=== PATIENT | female | born 1990 | race Caucasian/White ===

== ENCOUNTER 2017-07-31 22:22 | Emergency (ER) | payer OTHER ==
[2017-07-31 22:26] VITALS: BP 122/74; PULSE 118; TEMP 99.6; BMI 32.1
[2017-07-31 23:09] LABS: HCG,QUALITATIVE URINE POSITIVE
[2017-07-31 23:11] LABS: URINE APPEARANCE SLCLOUDY; URINE BILIRUBIN NEGATIVE (<2.0 mg/dL); URINE COLOR YELLOW; URINE GLUCOSE (UA) NEGATIVE (NEGATIVE); URINE KETONE NEGATIVE (NEGATIVE); URINE LEUK ESTERASE TRACE (NEGATIVE); URINE NITRITE NEGATIVE (NEGATIVE); URINE PROTEIN NEGATIVE (NEGATIVE); URINE UROBILINOGEN NEGATIVE mg/dL (0.2-1.0)
[2017-07-31 23:20] LABS: EPI CELLS FEW /HPF (FEW); URINE MUCUS RARE
--- NOTE | 2017-07-31 23:24 | PDOC ---
History of Present Illness - General History Source: Patient Exam Limitations: No Limitations - History of Present Illness Initial Comments: 08/01/17 00:07 The patient is a 27 year old female, G1 7wks with no past medical history presents to the emergency department complaining of vaginal discharge. The patient reports she was using the bathroom earlier today when she noticed a red/brown discharge when she wiped. The patient presents today to make sure that everything is ok with her . The patient reports she takes vitamin and denies the use of any other medication. Denies heavy cramping. Denies dysuria, hematuria, frequency or urgency to urinate. Denies diarrhea or constipation, nausea, or vomiting Family history: Diabetes. Surgical history: None reported. Allergies: NKDA LMP: June 12, 2017 <Nati Orellana - Last Filed: 08/01/17 01:45> <Elva Lemos - Last Filed: 08/01/17 01:51> - General Chief Complaint: Vaginal Bleeding Stated Complaint: VAGINAL BLEEDING Time Seen by Provider: 07/31/17 22:47 Past History <Nati Orellana - Last Filed: 08/01/17 01:45> - Past Medical History COPD: No - Suicide/Smoking/Psychosocial Hx Smoking History: Never smoked <Elva Lemos - Last Filed: 08/01/17 01:51> - Past Medical History Allergies/Adverse Reactions: Allergies Allergy/AdvReac Type Severity Reaction Status Date / Time amoxicillin Allergy Verified 07/31/17 22:24 Penicillins Allergy Verified 07/31/17 22:24 Review of Systems - Review of Systems Able to Perform ROS?: Yes Comments:: 08/01/17 00:07 CONSTITUTIONAL: Absent: fever, no chills, no fatigue EYES: Absent: visual changes ENT: Absent: ear pain, no sore throat CARDIOVASCULAR: Absent: chest pain, no palpitations RESPIRATORY: Absent: cough, no SOB GI: Absent: abdominal pain, no nausea, no vomiting, no constipation, no diarrhea GENITOURINARY: (+) red/brown discharge Absent: dysuria, no frequency, no hematuria MUSKULOSKELETAL: Absent: back pain, no arthralgia, no myalgia SKIN: Absent: rash <Nati Orellana - Last Filed: 08/01/17 01:45> *Physical Exam - Vital Signs Last Vital Signs Temp Pulse Resp BP Pulse Ox 99.6 F 118 H 18 122/74 98 07/31/17 22:24 07/31/17 22:24 07/31/17 22:24 07/31/17 22:24 07/31/17 22:24 - Physical Exam Comments: 08/01/17 00:34 GENERAL: Well-appearing, well-nourished. No apparent distress. HEENT: Normocephalic, atraumatic. PERRL, EOM intact. CARDIOVASCULAR: Normal S1, S2. Regular rate and rhythm. PULMONARY: Clear to auscultation bilaterally. ABDOMEN: Soft, non-distended, non-tender. EXTREMITIES: Normal ROM in all four extremities. No gross deformities. SKIN: Warm, dry. No rash NEUROLOGICAL: No focal neurological deficits. <Nati Orellana - Last Filed: 08/01/17 01:45> - Vital Signs Last Vital Signs Temp Pulse Resp BP Pulse Ox 99.6 F 118 H 18 122/74 98 07/31/17 22:24 07/31/17 22:24 07/31/17 22:24 07/31/17 22:24 07/31/17 22:24 <Elva Lemos - Last Filed: 08/01/17 01:51> ED Treatment Course - ADDITIONAL ORDERS Additional order review: Laboratory Results 07/31/17 22:27 Urine Color Yellow Urine Appearance Slcloudy Urine pH 6.0 Ur Specific [employer] 1.018 Urine Protein Negative Urine Glucose (UA) Negative Urine Ketones Negative Urine Blood Negative Urine Nitrite Negative Urine Bilirubin Negative Urine Urobilinogen Negative Ur Leukocyte Esterase Trace Urine WBC (Auto) 4 Urine RBC (Auto) 2 Ur Epithelial Cells Few Urine Mucus Rare Urine HCG, Qual Positive <Nati Orellana - Last Filed: 08/01/17 01:45> - ADDITIONAL ORDERS Additional order review: Laboratory Results 07/31/17 22:27 Urine Color Yellow Urine Appearance Slcloudy Urine pH 6.0 Ur Specific [employer] 1.018 Urine Protein Negative Urine Glucose (UA) Negative Urine Ketones Negative Urine Blood Negative Urine Nitrite Negative Urine Bilirubin Negative Urine Urobilinogen Negative Ur Leukocyte Esterase Trace Urine WBC (Auto) 4 Urine RBC (Auto) 2 Ur Epithelial Cells Few Urine Mucus Rare Urine HCG, Qual Positive <Elva Lemos - Last Filed: 08/01/17 01:51> Medical Decision Making - Medical Decision Making 08/01/17 01:45 Ultrasound read by: Angelito Carvalho MD at 08/01/2017 01:39 EST There is a single live intrauterine gestation with measurements corresponding to 7 weeks. A yolk sac is noted. heart rate is 154 beats per minute. No acute or sac abnormalities. Normal right ovary. Left ovary could not be visualized due to bowel gas <Nati Orellana - Last Filed: 08/01/17 01:45> *DC/Admit/Observation/Transfer <Nati Orellana - Last Filed: 08/01/17 01:45> <Elva Lemos - Last Filed: 08/01/17 01:51> Diagnosis at time of Disposition: Threatened - Discharge Dispostion Disposition: HOME Condition at time of disposition: Stable - Referrals Referrals: Cassandra Guzman [Primary Care Provider] - - Patient Instructions Printed Discharge Instructions: DI for Threatened Additional Instructions: please continue your care with your manager social - Post Discharge Activity
== END 2017-08-01 02:03 | disposition home or self-care (01) ==
LOC: JER 22:22
DX: Z3A.01 Less than 8 weeks gestation of pregnancy (principal)
CPT/HCPCS: 36415; 76817-TC; 81003; 81015; 84702; 84703; 86850; 86900; 86901; 99283-25

== ENCOUNTER 2018-02-14 16:23 | Inpatient (IN) | payer OTHER ==
[2018-02-14] MEDS ORDERED: BETAMET ACET/BETAMET NA PH 30 MG/5 ML VIAL ONE (17:44)
[2018-02-14] MEDS ORDERED: AMPICILLIN SODIUM 2 GM VIAL ONE (17:45)
[2018-02-14] MEDS: DEXTROSE 5%-LACTATED RINGERS 1,000 ML IV SCH (18:00)
[2018-02-14] MEDS ORDERED: AMPICILLIN - 2 GM in SODIUM CHLORIDE 100 ML IVPB ONE (18:21)
[2018-02-14] MEDS ORDERED: BETAMET ACET/BETAMET NA PH 30 MG/5 ML VIAL IM ONE (18:22)
--- NOTE | 2018-02-14 18:26 | HP ---
Past Medical History - Admission History of Present Illness: 28 yo @ 35 2/7 wks, EDC 03/19/2018 complicated by: 1. status No GBS yet 2. Obesity - Starting BMI 32 9 lb total weight gain per patient 3. Elevated 1 H GCT, normal 3 H GTT 4. Transfer of care to our practice at 22 wks 5. 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 Breech presentation on last ultrasound Patient presents with chief complaint of contractions which began at 1000. She denies leakage of fluid or vaginal bleeding, she reports movement. History Source: Patient Limitations to Obtaining History: No Limitations - Past Medical History Cardiovascular: No: HTN Pulmonary: No: Asthma Gastrointestinal: No: GERD ...: 1 ...Para: 0 ... Weeks Gestation by Dates: 35.2 ...EDC by Dates: 03/19/18 Heme/Onc: No: Anemia - Past Surgical History Past Surgical History: Yes: None Hx Myomectomy: No Hx Transabdominal Cerclage: No - Smoking History Smoking history: Never smoked - Alcohol/Substance Use Hx Alcohol Use: No History of Substance Use: reports: None - Social History History of Recent Travel: No Home Medications - Allergies Allergies/Adverse Reactions: Allergies Allergy/AdvReac Type Severity Reaction Status Date / Time amoxicillin Allergy Verified 07/31/17 22:24 Penicillins Allergy Verified 07/31/17 22:24 Family Disease History - Family Disease History Family History: Denies Review of Systems - Review of Systems Constitutional: reports: No Symptoms Cardiovascular: reports: No Symptoms Respiratory: reports: No Symptoms Gastrointestinal: reports: No Symptoms Musculoskeletal: reports: No Symptoms Neurological: reports: No Symptoms Psychiatric: reports: No Symptoms Physical Exam - Maternity Constitutional: Yes: Well Nourished, No Distress, Calm Lungs: Clear to auscultation - Abdominal Exam/OB Number of Fetuses: Single Contractions: No Intensity: Mild Monitor Mode: External Heart Rate (range): 155 Category: I Accelerations: Non-Uniform Decelerations: None - Vaginal Exam/OB Vaginal Bleediing: No Dilatation (cm): 3 Effacement (%): 50 Amniotic Membrane Status: Intact Presentation: Transverse/Shoulder Station: -3 - Physical Exam Edema: No Psychiatric: Yes: Alert, Oriented - Labs Lab Results: PNL - A positive, antibody negative Hg yadi AA; Lead < 1; HBs Ag neg; Rubella Low positive; HIV neg; Sequential WNL; Carrier screen WNL; HCV neg Hemorrhage Risk Assessment - Risk Factors Medium Risk Factors: Yes: None High Risk Factors: Yes: None Risk Score: 1 Risk Level: Medium Risk Assessment/Plan 28 yo @ 35 2/7 wks, labor 1. Admit to L&D 2. Routine labs collected and sent 3. Reviewed prematurity with patient. Discussed at this point in time we will not augment labor. Reviewed risk of including temperature regulation, respiratory distress, need for prolonged hospitalization. NICU notified of patient's status 4. Bedside ultrasound ordered 5. GBS unknown - Patient denies penicillin / ampicillin allergy Plan for ampicillin 6. Will start betamethasone course 7. Will offer pain medication upon request 8. Will proceed with expectant management
[2018-02-14] MEDS ORDERED: TUBERCULIN PPD 5 TU/0.1ML SYRINGE (IN PATIENT USE ONLY) ID ONE (18:27)
[2018-02-14 18:34] VITALS: BMI 34.5
[2018-02-14 19:40] LABS: BASO % 0.4 % (0-2.0); EOS % 0.3 % (0-4.5); HEMATOCRIT 34.2 % (32.4-45.2); HEMOGLOBIN 12.2 GM/dL (10.7-15.3); LYMPH % 21.6 % (8-40); MCH 31.4 pg (25.7-33.7); MCHC 35.7 g/dl (32.0-36.0); MEAN CELL VOLUME 87.9 fl (80-96); MONO % 5.5 % (3.8-10.2); NEUT % 72.2 % (42.8-82.8); PLATELET COUNT 194 K/MM3 (134-434); RBC 3.89 M/mm3 (3.60-5.2); RDW 12.7 % (11.6-15.6); WHITE BLOOD COUNT 9.1 K/mm3 (4.0-10.0)
[2018-02-14 19:55] LABS: INR 0.92 (0.83-1.09); PROTHROMBIN TIME (PATIENT) 10.9 SEC (9.7-13.0)
[2018-02-14 19:57] LABS: ACTIVATED PTT 27.8 SECONDS (25.2-36.5)
[2018-02-14 20:04] LABS: ANION GAP 11 MMOL/L (8-16); BLOOD UREA NITROGEN 6 mg/dL (7-18); CALCIUM 8.6 mg/dL (8.5-10.1); CHLORIDE 107 mmol/L (98-107); CO2 21 mmol/L (21-32); CREATININE 0.6 mg/dL (0.55-1.3); GLUCOSE,RANDOM 114 mg/dL (74-106); POTASSIUM 3.7 mmol/L (3.5-5.1); SODIUM 139 mmol/L (136-145)
--- NOTE | 2018-02-14 21:01 | PN ---
Ante-Partal Exam - Subjective Subjective: Patient reports leakage of clear fluids Increased pain with contractions Vital Signs: Vital Signs Temperature 98.7 F 02/14/18 20:00 Pulse Rate 104 H 02/14/18 20:00 Respiratory Rate 20 02/14/18 20:00 Blood Pressure 120/70 02/14/18 20:00 O2 Sat by Pulse Oximetry (%) Bleeding: No Headache: No Visual changes: No Right upper quadrant pain: No - Contractions Contractions: Yes Regularity: Irregular Intensity: Moderate Monitor Mode: External - Exam during Labor Heart Rate: 155 Variability: Moderate Category: I Monitor Accelerations: Present Monitor Decelerations: None Exam: Vaginal Dilatation (cm): 4 Effacement (%): 100 Amniotic Membrane Status: Ruptured Presentation: Transverse/Shoulder Station: -2 - Intrapartum Hemorrhage Risk Medium Risk Factors: None High Risk Factors: None Risk Score: 0 Risk Level: Low Risk - Assessment/Plan Assessment/Plan: 28 yo @ 35 + wks, SROM, labor 1. Patient with transverse lie reviewed given position, will need delivery Reviewed risks including but not limited to infection, bleeding, damage to surrounding organs such as bowel, bladder; risk of injury to infant 2. Category I FHT 4. Neonatology notified, Dr. Leon at bedside 5. Will notify OR and anesthesia
[2018-02-14] MEDS ORDERED: morphine SULFATE/Preservative Free 0.5 MG/ML (1cc Syringe) ONE (21:14)
[2018-02-14] MEDS ORDERED: ceFAZolin SODIUM 1 GM VIAL ONE (21:30)
[2018-02-14] MEDS ORDERED: OXYTOCIN 10 UNITS/ML VIAL ONE (21:41)
[2018-02-14] MEDS ORDERED: ONDANSETRON 4 MG/2 ML VIAL IVPUSH PRN (21:58)
[2018-02-14 22:15] LABS: ARTERIAL BLOOD GAS BASE EXCESS -1.6 meq/l (-2-2); ARTERIAL BLOOD GAS pH 7.26 (7.35-7.45)
[2018-02-14] MEDS ORDERED: AMPICILLIN - 1 GM in SODIUM CHLORIDE 100 ML IVPB SCH (22:22)
[2018-02-14 22:28] LABS: ARTERIAL BLD GAS O2 SATURATION 10.6 % (90-98.9); ARTERIAL BLOOD GAS PCO2 60.4 mmHg (35-45); ARTERIAL BLOOD GAS PO2 10.8 mmHg (80-100)
[2018-02-14 22:30] LABS: VENOUS PH 7.32 (7.32-7.42); VENOUS PO2 19.8 mmHg (28-48)
--- NOTE | 2018-02-14 22:59 | PN ---
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
[2018-02-14] MEDS ORDERED: BENZOCAINE 28 GM HEMORRHOIDAL OINTMENT TP PRN (23:02)
[2018-02-14] MEDS ORDERED: oxyCODONE HCL 5 MG TABLET PO PRN ×2 (23:02)
[2018-02-14] MEDS ORDERED: IBUPROFEN 800 MG/8 ML IJ IVPB PRN (23:02)
[2018-02-14] MEDS ORDERED: SENNOSIDES/DOCUSATE COMBO (SENNA PLUS) TABLET (UD) PO PRN (23:02)
[2018-02-14] MEDS ORDERED: BENZOCAINE 20% 57 GM BOTTLE TP PRN (23:02)
[2018-02-14] MEDS ORDERED: METHYLERGONOVINE MALEATE 0.2 MG/1 ML AMP IM PRN (23:02)
[2018-02-15] MEDS ORDERED: OXYTOCIN 20 UNITS in 0.9% NS 20 UNIT/1,000 ML INFUS.BAG IV ONE (00:27)
--- NOTE | 2018-02-15 06:25 | PN ---
Post Progress Note - Subjective Subjective: Patient without acute complaints. Tolerating clears, without nausea or vomiting No voiding, bocanegra in place draining clear fluid No ambulation or flatus yet. Denies fevers or chills. Pain well controlled. Post Day: 1 Type of Delivery: Primary C/S Vital Signs: Vital Signs Temperature 99.4 F 02/15/18 02:00 Pulse Rate 98 H 02/15/18 02:00 Respiratory Rate 18 02/15/18 04:00 Blood Pressure 113/64 02/15/18 02:00 O2 Sat by Pulse Oximetry (%) Breast Exam: Yes: Soft Uterus: Yes: Fundus Firm, Fundus below umbilicus Incision: Yes: Dressing dry and intact Abdomen/GI: Yes: Abdomen soft, Abdominal Distention (mild ), Tender (mild incisional), Passing flatus Extremities: Yes: Calves non-tender, Edema (trace) Activity: Ambulating - Labs Labs: CBC WBC 9.1 K/mm3 (4.0-10.0) 02/14/18 18:40 RBC 3.89 M/mm3 (3.60-5.2) 02/14/18 18:40 Hgb 12.2 GM/dL (10.7-15.3) 02/14/18 18:40 Hct 34.2 % (32.4-45.2) 02/14/18 18:40 MCV 87.9 fl (80-96) 02/14/18 18:40 MCH 31.4 pg (25.7-33.7) 02/14/18 18:40 MCHC 35.7 g/dl (32.0-36.0) 02/14/18 18:40 RDW 12.7 % (11.6-15.6) 02/14/18 18:40 Plt Count 194 K/MM3 (134-434) 02/14/18 18:40 MPV 10.0 fl (7.5-11.1) 02/14/18 18:40 Absolute Neuts (auto) 6.5 K/mm3 (1.5-8.0) 02/14/18 18:40 Neutrophils % 72.2 % (42.8-82.8) 02/14/18 18:40 Lymphocytes % 21.6 % (8-40) 02/14/18 18:40 Monocytes % 5.5 % (3.8-10.2) 02/14/18 18:40 Eosinophils % 0.3 % (0-4.5) 02/14/18 18:40 Basophils % 0.4 % (0-2.0) 02/14/18 18:40 Nucleated RBC % 0 % (0-0) 02/14/18 18:40 Assessment/Plan 28 yo POD # 1 s/p primary CD, afebrile, vital signs stable, doing well 1. Continue routine postoperative care. 2. Follow up AM CBC 3. Rh positive status, no rhogam indicated. 4. Encourage ambulation and incentive spirometer use 5. Continue oral pain medication 6. Anticipate discharge home postoperative day #3 or #4
[2018-02-15 08:15] LABS: BASO % 0.3 % (0-2.0); HEMATOCRIT 33.1 % (32.4-45.2); HEMOGLOBIN 10.9 GM/dL (10.7-15.3); LYMPH % 9.8 % (8-40); MCH 29.2 pg (25.7-33.7); MEAN CELL VOLUME 88.6 fl (80-96); MEAN PLT VOLUME 9.6 fl (7.5-11.1); MONO % 4.4 % (3.8-10.2); NEUT % 85.5 % (42.8-82.8); PLATELET COUNT 196 K/MM3 (134-434); RBC 3.74 M/mm3 (3.60-5.2); RDW 12.7 % (11.6-15.6); WHITE BLOOD COUNT 16.4 K/mm3 (4.0-10.0)
[2018-02-15] MEDS: OXYTOCIN 20 UNITS in 0.9% NS 20 UNIT/1,000 ML INFUS.BAG IV SCH (08:36)
[2018-02-15] MEDS: FERROUS SO4 325 MG TABLET (FP) PO SCH ×2 (08:37→18:20)
[2018-02-15] MEDS: PRENATAL VITAMINS W/ FOLIC ACID TABLET (FP) PO SCH (09:14)
--- NOTE | 2018-02-15 09:16 | OP ---
DATE OF OPERATION: 02/14/2018 SURGEON: Senait Carpenter MD TRANSPORTATION ASSOCIATE: LADY Bah ANESTHESIA: Matt Gaitan MD, with spinal anesthesia. FINDINGS: Female infant, transverse lie, back up, Apgars 6 and 9, weight 5 pounds 7 ounces, length 16.5 inches. Normal fallopian tubes and ovaries noted. 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 FLUIDS GIVEN: 1100. URINE OUTPUT: 400. ESTIMATED BLOOD LOSS: 700. INDICATION: Patient is a 28-year-old, 1, para 0, at 35 and 2 weeks, who presented with chief complaint of contractions and cervical change. She had grossly ruptured and was found to be transverse lie. She was counseled regarding delivery. Risks, benefits, alternatives, and complications were discussed, including infection, bleeding, damage to surrounding organs such as bowel, bladder, injury to , need for future child-bearing planning. She expressed understanding. DESCRIPTION OF PROCEDURE: Was brought to the operating room. When anesthesia was found to be adequate, patient was prepped and draped in normal sterile fashion in dorsal supine position with a leftward tilt. An approximately 11-cm skin incision was made with a knife and carried down to the underlying rectus fascia using the Bovie electrocautery. The fascia was nicked in midline, extended laterally using the Morse scissors. Inferior portion of the fascial incision was tented up using Gabino clamps. Dissected underlying rectus muscles using Morse scissors. Attention was brought to the superior portion where in similar fashion it was tented up using Gabino clamps. Dissected underlying rectus muscles using Morse scissors. The rectus muscles were in the midline bluntly and the peritoneum was entered sharply and this incision was extended superiorly and inferiorly using Metzenbaum scissors. The vesicouterine peritoneum was identified, entered sharply, and extended laterally using Metzenbaum scissors. A bladder flap was created digitally. The hysterotomy was performed and extended laterally using the bandage scissors. The was found to be in transverse position. She was reverted to breech. The breech of the progressed until the level of the scapula where the 's right scapula was rotated anteriorly. The right arm was swept midline and delivered. The infant was then rotated until the left scapula was anterior and the left arm was delivered in a similar fashion. The head was flexed and the head was delivered atraumatically. Cord was clamped and cut. Nose and mouth were bulb suctioned. Cord blood and cord gases were collected and sent and was handed to awaiting NICU staff present for delivery. The placenta was manually extracted. Uterus was cleared of all clot and debris. Uterus closed using 0 Biosyn in a running layer, second layer was an imbricated layer. 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 The vesicouterine peritoneum was reapproximated. The gutters were cleared of all clot and debris. The peritoneum was closed using 2-0 Biosyn in a running fashion. The muscles reapproximated using 0 Vicryl in interrupted fashion. The fascia was closed using 0 Vicryl in a running fashion and the subcutaneous fat was closed using 0 Vicryl in a running fashion. Skin was reapproximated using 3 -0 Vicryl. Patient tolerated procedure well. Estimated blood loss was 700 mL. Patient was brought to recovery room in stable condition. Barbara [id number] MTDD
--- NOTE | 2018-02-15 10:48 | PN ---
Progress Note (short form) - Note Progress Note: Anesthesia postop note 28y/o F s/p spinal anesthesia/duramorph for section POD#1, vss, aaox3, sensory motor intact distally, pain well controllef. No anesthesia complications.
[2018-02-15] MEDS: IBUPROFEN 600 MG TABLET (FP) PO PRN (16:29)
[2018-02-15] MEDS: SIMETHICONE 80 MG TAB.CHEW (FP) PO PRN (16:30)
[2018-02-15] MEDS: ACETAMINOPHEN 325 MG TABLET (FP) PO PRN (16:30)
[2018-02-15] MEDS ORDERED: BISACODYL 10 MG SUPP.RECT RC PRN (23:02)
[2018-02-16] MEDS: SIMETHICONE 80 MG TAB.CHEW (FP) PO PRN ×2 (01:47→19:17)
[2018-02-16] MEDS: ACETAMINOPHEN 325 MG TABLET (FP) PO PRN ×2 (01:47→19:17)
[2018-02-16] MEDS: IBUPROFEN 600 MG TABLET (FP) PO PRN ×2 (01:47→19:16)
--- NOTE | 2018-02-16 08:20 | PN ---
Progress Note (short form) - Note Progress Note: ppd 2 doing well, no c/o, no excess vaginal bleeding CBC, BMP 02/15/18 07:45 02/14/18 18:40 Last Vital Signs Temp Pulse Resp BP Pulse Ox 98.3 F 104 H 20 107/59 L 02/15/18 21:41 02/15/18 21:41 02/16/18 00:00 02/15/18 21:41 abdomen soft, non tender, no cva , incision dry, clean in uterus firm lochia mild no calf tenseness plan ambulate, cbc in am
[2018-02-16] MEDS: FERROUS SO4 325 MG TABLET (FP) PO SCH ×2 (08:27→17:19)
[2018-02-16] MEDS: PRENATAL VITAMINS W/ FOLIC ACID TABLET (FP) PO SCH (11:08)
--- NOTE | 2018-02-17 06:44 | PN ---
Post Progress Note - Subjective Subjective: Patient without acute complaints. Reports tolerating oral intake without nausea or vomiting. Ambulating without dizziness. Denies fevers or chills. Pain well controlled with oral pain medication. Pumping without issue, baby not latching yet. Passing flatus, no BM. Reports feels constipated Post Day: 3 Type of Delivery: Primary C/S Vital Signs: Vital Signs Temperature 98.8 F 02/16/18 20:55 Pulse Rate 117 H 02/16/18 20:55 Respiratory Rate 20 02/16/18 20:55 Blood Pressure 99/61 02/16/18 20:55 O2 Sat by Pulse Oximetry (%) Breast Exam: Yes: Soft Uterus: Yes: Fundus Firm, Fundus below umbilicus Incision: Yes: Sutures intact. No: Redness, Oozing Abdomen/GI: Yes: Abdomen soft, Passing flatus, Tolerating PO. No: Abdominal Distention, Tender Lochia: Yes: Serosa Lochia, amount: Small Extremities: Yes: Calves non-tender, Edema (+1) Activity: Ambulating - Labs Labs: CBC WBC 16.4 K/mm3 (4.0-10.0) H 02/15/18 07:45 RBC 3.74 M/mm3 (3.60-5.2) 02/15/18 07:45 Hgb 10.9 GM/dL (10.7-15.3) 02/15/18 07:45 Hct 33.1 % (32.4-45.2) 02/15/18 07:45 MCV 88.6 fl (80-96) 02/15/18 07:45 MCH 29.2 pg (25.7-33.7) 02/15/18 07:45 MCHC 33.0 g/dl (32.0-36.0) 02/15/18 07:45 RDW 12.7 % (11.6-15.6) 02/15/18 07:45 Plt Count 196 K/MM3 (134-434) 02/15/18 07:45 MPV 9.6 fl (7.5-11.1) 02/15/18 07:45 Absolute Neuts (auto) 14.1 K/mm3 (1.5-8.0) H 02/15/18 07:45 Neutrophils % 85.5 % (42.8-82.8) H 02/15/18 07:45 Lymphocytes % 9.8 % (8-40) D 02/15/18 07:45 Monocytes % 4.4 % (3.8-10.2) 02/15/18 07:45 Eosinophils % 0.0 % (0-4.5) D 02/15/18 07:45 Basophils % 0.3 % (0-2.0) 02/15/18 07:45 Nucleated RBC % 0 % (0-0) 02/15/18 07:45 Assessment/Plan 28 yo POD # 3 s/p primary CD, afebrile, vital signs stable, doing well 1. Continue routine postoperative care. 2. Encourage ambulation and incentive spirometer use 3. Continue oral pain medication 4. Anticipate discharge home postoperative day #4
[2018-02-17] MEDS: ACETAMINOPHEN 325 MG TABLET (FP) PO PRN ×4 (08:01→23:32)
[2018-02-17] MEDS: SIMETHICONE 80 MG TAB.CHEW (FP) PO PRN ×4 (08:01→23:32)
[2018-02-17] MEDS: FERROUS SO4 325 MG TABLET (FP) PO SCH ×2 (08:01→17:33)
[2018-02-17] MEDS: IBUPROFEN 600 MG TABLET (FP) PO PRN ×4 (08:01→23:32)
[2018-02-17 08:24] LABS: BASO % 0.4 % (0-2.0); EOS % 0.7 % (0-4.5); HEMATOCRIT 28.7 % (32.4-45.2); HEMOGLOBIN 9.4 GM/dL (10.7-15.3); LYMPH % 29.3 % (8-40); MCH 29.5 pg (25.7-33.7); MCHC 32.9 g/dl (32.0-36.0); MEAN CELL VOLUME 89.9 fl (80-96); MEAN PLT VOLUME 9.5 fl (7.5-11.1); MONO % 6.5 % (3.8-10.2); NEUT % 63.1 % (42.8-82.8); PLATELET COUNT 166 K/MM3 (134-434); WHITE BLOOD COUNT 9.7 K/mm3 (4.0-10.0)
[2018-02-17] MEDS: PRENATAL VITAMINS W/ FOLIC ACID TABLET (FP) PO SCH (09:28)
[2018-02-18] MEDS: DEXTROSE 5%-LACTATED RINGERS 1,000 ML IV SCH (01:54)
[2018-02-18] MEDS: OXYTOCIN 20 UNITS in 0.9% NS 20 UNIT/1,000 ML INFUS.BAG IV SCH (01:54)
[2018-02-18] MEDS: ACETAMINOPHEN 325 MG TABLET (FP) PO PRN ×2 (06:18→12:07)
[2018-02-18] MEDS: IBUPROFEN 600 MG TABLET (FP) PO PRN ×2 (06:18→12:07)
[2018-02-18] MEDS: SIMETHICONE 80 MG TAB.CHEW (FP) PO PRN ×2 (06:18→12:06)
[2018-02-18] MEDS: FERROUS SO4 325 MG TABLET (FP) PO SCH (08:47)
--- NOTE | 2018-02-18 11:08 | PN ---
Post Progress Note - Subjective Subjective: Patient without complaints, doing well. Reports tolerating oral intake without nausea or vomiting. Ambulating without dizziness. Denies fevers or chills. Pain well controlled with oral pain medication. Breast feeding w/o problems Passing flatus and BM. Post Day: 4 Type of Delivery: Primary C/S Vital Signs: Vital Signs Temperature 98.2 F 02/17/18 22:00 Pulse Rate 90 02/17/18 22:00 Respiratory Rate 18 02/17/18 22:00 Blood Pressure 107/59 L 02/17/18 22:00 O2 Sat by Pulse Oximetry (%) Breast Exam: Yes: Soft Uterus: Yes: Fundus Firm Incision: Yes: Sutures intact Abdomen/GI: Yes: Abdomen soft Lochia: Yes: Rubra Lochia, amount: Small Extremities: Yes: Calves non-tender Perineum: Yes: Intact Activity: Ambulating - Labs Labs: CBC WBC 9.7 K/mm3 (4.0-10.0) 02/17/18 07:15 RBC 3.20 M/mm3 (3.60-5.2) L 02/17/18 07:15 Hgb 9.4 GM/dL (10.7-15.3) L 02/17/18 07:15 Hct 28.7 % (32.4-45.2) L 02/17/18 07:15 MCV 89.9 fl (80-96) 02/17/18 07:15 MCH 29.5 pg (25.7-33.7) 02/17/18 07:15 MCHC 32.9 g/dl (32.0-36.0) 02/17/18 07:15 RDW 13.0 % (11.6-15.6) 02/17/18 07:15 Plt Count 166 K/MM3 (134-434) 02/17/18 07:15 MPV 9.5 fl (7.5-11.1) 02/17/18 07:15 Absolute Neuts (auto) 6.1 K/mm3 (1.5-8.0) 02/17/18 07:15 Neutrophils % 63.1 % (42.8-82.8) D 02/17/18 07:15 Lymphocytes % 29.3 % (8-40) D 02/17/18 07:15 Monocytes % 6.5 % (3.8-10.2) 02/17/18 07:15 Eosinophils % 0.7 % (0-4.5) D 02/17/18 07:15 Basophils % 0.4 % (0-2.0) 02/17/18 07:15 Nucleated RBC % 0 % (0-0) 02/17/18 07:15 Assessment/Plan 28yo P2 s/p primary LT C/S, doing well stable, afebrile. The pt is asymptomatic for s/sxs of anemia. care instructions reviewed. Postop instructions reviewed. Continue routine postop care. Ambulation encouraged. D/c home today
--- NOTE | 2018-02-18 11:31 | DS ---
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 Vital Signs: Vital Signs Temperature 98.2 F 02/17/18 22:00 Pulse Rate 90 02/17/18 22:00 Respiratory Rate 18 02/17/18 22:00 Blood Pressure 107/59 L 02/17/18 22:00 O2 Sat by Pulse Oximetry (%) Constitutional: Yes: Well Nourished, No Distress, Calm Eyes: Yes: WNL, Conjunctiva Clear, EOM Intact HENT: Yes: WNL, Atraumatic, Normocephalic Neck: Yes: WNL, Supple, Trachea Midline Cardiovascular: Yes: WNL, Regular Rate and Rhythm Respiratory: Yes: WNL, Regular, CTA Bilaterally Gastrointestinal: Yes: WNL, Normal Bowel Sounds, Soft ...Rectal Exam: Yes: Deferred Renal/: Yes: WNL ....Post : Yes: Uterus firm, Uterus non-tender, Slight lochia rubra Breast(s): Yes: WNL Musculoskeletal: Yes: WNL Extremities: Yes: WNL Edema: Yes Edema: LLE: Trace, RLE: Trace Integumentary: Yes: WNL Wound/Incision: Yes: Clean/Dry, Well Approximated, Sutures Intact, Open to air Neurological: Yes: WNL, Alert, Oriented ...Motor Strength: WNL Psychiatric: Yes: WNL, Alert, Oriented Labs: CBC, BMP 02/17/18 07:15 02/14/18 18:40 Delivery - Delivery Section: Primary, Low Flap Transverse Type of Anesthesia: Spinal Episiotomy/Laceration: None EBL (cc): 700 Delivery, Single - Stages of Labor Date 1st Stage Initiatied: 02/14/18 Time 1st Stage Initiated: 10:00 Date of Delivery: 02/14/18 Time of Delivery: 21:47 Time Placenta Delivered: 21:48 Placenta: Yes: Expressed - Condition of Auto Parts Manager/Instrument And Control Service Person Present: Yes Name: Aileen Leon Gender: Female Weight: 2.466 kg Total Hours ROM (Hrs/Mins): 1h47m - 1 Minute Total Score: 6 5 Minutes Total Score: 9 - [place] Feeding Plan Initial Plan: Exclusive throughout hospitalization Benefits of Exclusively reinforced: Yes Discharge Summary Reason For Visit: PRIMARY Malpresentation, transverse lie Procedures: Principal: Primary LT C/S Hospital Course: Normal recovery Condition: Good - Instructions Diet, Activity, Other Instructions: Physical activity Resume your normal everyday activity as tolerated no heavy lifting or exercise until seen by your surgeon. You may walk unlimited [place] of and climb stairs. You may resume driving the car when you feel safe and comfortable behind the wheel. No sexual activity as instructed. Wound care If you have a bandage, leave it on, and keep dry for 48-72 hours. After that time discard the outer bandage. If they are tapes on the skin under the out of bandage leave them in place. They will peel off in the next 7 to 10 days. Do Not Peel them off. You may shower the day after surgery. If there are tapes present on the skin, you may shower over them. Diet There are no dietary restrictions. Eat healthy, high-fiber foods. Drink 6 to 8 glasses of liquid each day. This will assist in keeping your bowels are regular. Pain management You may take Tylenol or acetaminophen or Ibuprofen (for example, Motrin, Advil etc.) from my pain prescription medication is ordered should be taken as prescribed for moderate to severe pain. Call MD for any of the following: Severe pain not relieved by medication Fever of 101 or higher Excessive bleeding or drainage on dressing Inability to urinate Referrals: Senait Carpenter MD [Staff Physician] - Disposition: HOME - Home Medications Comprehensive Discharge Medication List: Ambulatory Orders Prenat 115/Iron Fum/Folic/Dss [ 19 Tablet] 1 each PO DAILY 02/14/18
[2018-02-18] MEDS: PRENATAL VITAMINS W/ FOLIC ACID TABLET (FP) PO SCH (12:06)
[2018-02-18 12:13] VITALS: BP 100/46; PULSE 96; TEMP 98.9
--- NOTE | 2018-02-20 16:05 | PATH ---
Surgical Pathology Report Patient Name: ARLENE WHITE I. Med. Rec. 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 Electronically Signed Redd Albrecht M.D. Gross Description The specimen is received fresh labeled placenta and is a 369 gram, 14.0 x 13.5 x 3.0 cm. placenta with attached membranes and umbilical cord. The attached membranes are covington, translucent with focal opacities and insert marginally. The umbilical cord measures 8.5 cm. in length and averages 1.2 cm. in diameter. The cord inserts eccentrically, 2.5 cm. to the nearest margin. No true knots or strictures are identified. Cut surface of the umbilical cord reveals 3 vessels. The surface is paez-blue with minimal fibrin deposition and appropriate caliber vessels. The maternal surface is red-brown with focal defects. Sectioning reveals red-brown, spongy parenchyma. No lesions are identified. Billing Supervisor sections are submitted in three cassettes as follows: 1- membrane rolls and umbilical cord; 2-3- full thickness sections of placenta. 02/19/201802/19/2018
== END 2018-02-18 14:50 | disposition home or self-care (01) | DRG 786 ==
LOC: JDEL 16:23 → JLDR 17:30 → J3W 02-15 00:55
PROVIDERS: ADMIT Obstetrics & Gynecology; ATTEND Obstetrics & Gynecology
PROC: 10D00Z1 Extraction of Products of Conception, Low, Open Approach (ICD-10-PCS; principal; 2018-02-14)
DX: O32.2XX0 Maternal care for transverse and oblique lie, not applicable or unspecified (principal); O60.14X0 Preterm labor third trimester with preterm delivery third trimester, not applicable or unspecified; O99.213 Obesity complicating pregnancy, third trimester; E66.9 Obesity, unspecified; Z3A.35 35 weeks gestation of pregnancy; Z68.34 Body mass index [BMI] 34.0-34.9, adult; Z37.0 Single live birth
CPT/HCPCS: 36415; 36600; 76801-TC; 80048; 82803; 85025; 85610; 85730; 86593; 86850; 86900; 86901; 88307-TC; 94010; 96372

== ENCOUNTER 2018-11-07 20:24 | Emergency (ER) | payer OTHER ==
[2018-11-07 20:36] VITALS: TEMP 99.2; BMI 33.9
--- NOTE | 2018-11-07 20:37 | PDOC ---
Rapid Medical Evaluation Chief Complaint: Chest Pain Time Seen by Provider: 11/07/18 20:34 Medical Evaluation: Allergies Allergy/AdvReac Type Severity Reaction Status Date / Time No Known Allergies Allergy Verified 02/14/18 18:35 11/07/18 20:35 I have performed a brief in-person evaluation of this patient. The patient presents with a chief complaint of: intermittent CP and palpitations for 3 days. Denies SOB, dizziness, numbness or tingling sensation. pt went to urgent care today and was found to have A-flutter Pertinent physical exam findings: A&O x 3 in NAD I have ordered the following: ekg, cbc, cardiac profile, TSH, free T3 The patient will proceed to the ED for further evaluation. Discharge Disposition - Diagnosis Palpitations - Discharge Dispostion Condition at time of disposition: Stable - Referrals - Patient Instructions - Post Discharge Activity
[2018-11-07 21:09] LABS: BASO % 0.6 % (0-2.0); EOS % 0.3 % (0-4.5); HEMATOCRIT 38.1 % (32.4-45.2); HEMOGLOBIN 12.8 GM/dL (10.7-15.3); LYMPH % 34.2 % (8-40); MCH 28.9 pg (25.7-33.7); MCHC 33.7 g/dl (32.0-36.0); MEAN CELL VOLUME 85.9 fl (80-96); MEAN PLT VOLUME 9.3 fl (7.5-11.1); MONO % 7.7 % (3.8-10.2); NEUT % 57.2 % (42.8-82.8); PLATELET COUNT 224 K/MM3 (134-434); RBC 4.43 M/mm3 (3.60-5.2); RDW 13.1 % (11.6-15.6); WHITE BLOOD COUNT 8.1 K/mm3 (4.0-10.0)
[2018-11-07] MEDS ORDERED: ALPRAZolam 0.25 MG TABLET PO ONE (21:50)
[2018-11-07] MEDS ORDERED: ALPRAZolam 0.25 MG TABLET ONE (22:05)
--- NOTE | 2018-11-07 22:53 | PDOC ---
Documentation entered by Ariel Figueroa SCRIBE, acting as scribe for Car Chandra MD. Car Chandra MD: This documentation has been prepared by the Carolina coats Elijah, SCRIBE, under my direction and personally reviewed by me in its entirety. I confirm that the documentation accurately reflects all work, treatment, procedures, and medical decision making performed by me. History of Present Illness - General Chief Complaint: Chest Pain Stated Complaint: CHEST PAIN Time Seen by Provider: 11/07/18 20:34 History Source: Patient Exam Limitations: No Limitations - History of Present Illness Initial Comments: 11/07/18 21:42 Patient is a 28 year old female with a significant past medical of anxiety disorder who presents to the ED with Chest Pain beginning Monday and palpitations occurring today. Patient reports that she has had Chest pain that she describes as dull, is associated with Chest tightness and worsens with deep breaths. Today the patient reported having a palpitation which is similar to previous panic attacks but when it did not subside it prompted the visit to the ED. Denies fever, chills and cough. Allergies: NKA PCP: None Past History - Past Medical History Allergies/Adverse Reactions: Allergies Allergy/AdvReac Type Severity Reaction Status Date / Time No Known Allergies Allergy Verified 02/14/18 18:35 Home Medications: Ambulatory Orders Prenat 115/Iron Fum/Folic/Dss [ 19 Tablet] 1 each PO DAILY 02/14/18 Oxycodone HCl/Acetaminophen [Percocet 5-325 mg Tablet -] 1 - 2 tab PO Q6H PRN # 20 tab MDD 8 02/18/18 Asthma: No Cancer: No Cardiac Disorders: No COPD: No Diabetes: No HTN: No Seizures: No Thyroid Disease: No - Suicide/Smoking/Psychosocial Hx Smoking History: Never smoked Have you smoked in the past 12 months: No Hx Alcohol Use: No Drug/Substance Use Hx: No Hx Substance Use Treatment: No Review of Systems - Review of Systems Comments:: 11/07/18 21:50 CONSTITUTIONAL: No fever, no chills, no fatigue EYES: No visual changes ENT: No ear pain, no sore throat CARDIOVASCULAR: +chest pain +palpitations RESPIRATORY: No cough, no SOB GI: No abdominal pain, no nausea, no vomiting, no constipation, no diarrhea GENITOURINARY: No dysuria, no frequency, no hematuria MUSKULOSKELETAL: No backpain, no joint pain, no myalgias SKIN: No rash NEURO: No headache *Physical Exam - Vital Signs Last Vital Signs Temp Pulse Resp BP Pulse Ox 99.2 F 124 H 18 111/75 97 11/07/18 20:33 11/07/18 20:33 11/07/18 20:33 11/07/18 20:33 11/07/18 20:33 - Physical Exam Comments: 11/07/18 21:51 CONSTITUTIONAL: Well-appearing; well-nourished; in no apparent distress HEAD: Normocephalic; atraumatic EYES: PERRL; EOM intact ENMT: External appears normal; normal oropharynx NECK: Supple; non-tender; no cervical lymphadenopathy CARD: +Reproducible Tenderness to Palpations in left chest wall. Normal S1, S2; no murmurs, rubs, or gallops RESP: Normal chest excursion with respiration; breath sounds clear and equal bilaterally; no wheezes, rhonchi, or rales ABD: Soft, non-distended; non-tender; no palpable organomegaly, no palpable hernias EXT: +L Lower Extremity swelling. Normal ROM in all four extremities; non- tender to palpation; distal pulses intact SKIN: Warm, dry, no rash NEURO: No focal neurological deficiencies. Heart Score/ECG Review - ECG Intrepretation Comment:: 11/07/18 21:52 Vent. Rate 115 BPM MD interval 148 ms QRS duration 68ms QT/QTc 312/431 ms P-R-T axes 45 52 28 Sinus Tachycardia, Otherwise normal ED Treatment Course - LABORATORY CBC & Chemistry Diagram: 11/07/18 20:51 11/07/18 22:16 - ADDITIONAL ORDERS Additional order review: Laboratory Results 11/07/18 11/07/18 11/07/18 22:16 22:16 20:51 Sodium 144 Potassium 4.1 Chloride 107 Carbon Dioxide 29 Anion Gap 8 BUN 12.2 Creatinine 0.9 Est GFR (CKD-EPI)AfAm 101.56 Est GFR (CKD-EPI)NonAf 87.63 Random Glucose 89 Calcium 9.1 Total Bilirubin 0.2 AST 20 ALT 21 Alkaline Phosphatase 96 Creatine Kinase Troponin I Total Protein 7.3 Albumin 3.8 TSH Free T4 1.05 Serum , Qual Negative 11/07/18 20:51 Sodium Potassium Chloride Carbon Dioxide Anion Gap BUN Creatinine Est GFR (CKD-EPI)AfAm Est GFR (CKD-EPI)NonAf Random Glucose Calcium Total Bilirubin AST ALT Alkaline Phosphatase Creatine Kinase 76 Troponin I < 0.02 Total Protein Albumin TSH 1.75 Free T4 Serum , Qual 11/07/18 20:51 RBC 4.43 MCV 85.9 MCHC 33.7 RDW 13.1 MPV 9.3 Neutrophils % 57.2 Lymphocytes % 34.2 Monocytes % 7.7 Eosinophils % 0.3 Basophils % 0.6 - Medications Given in the ED: ED Medications Discontinued Medications Generic Name Dose Route Start Last Admin Trade Name Freq PRN Reason Stop Dose Admin Alprazolam 0.25 mg 11/07/18 21:50 11/07/18 22:07 Xanax - PO 11/07/18 21:51 0.25 mg ONCE ONE Administration Medical Decision Making - Medical Decision Making 11/07/18 22:52 Patient is anxious appearing 28-year-old female who presents with pleuritic chest pain and tachycardia. Will rule out PE via CTA of chest. Will also obtain left lower extremity Doppler ultrasound to rule out DVT. Will reassess. 11/08/18 00:42 Patient resting comfortably, heart rate noted to be 82. CTA of chest reveals no evidence of pulmonary embolism. Left lower extremity Doppler ultrasound shows no evidence of DVT. At this time, I believe patient's symptoms are related to musculoskeletal pain no further workup is indicated in the ER. Will discharge with outpatient follow-up. Patient advised not to operate her car after administration of Xanax. Patient informed me that she will take uber home and return in the morning for her car. 11/08/18 00:47 US FINDINGS: Negative for left lower extremity deep venous thrombosis Chest CT FINDINGS: Negative for pulmonary embolus. Negative for thoracic aortic aneurysm or dissection. Lungs are clear of acute disease. Incidental note made of residual thymic tissue. *DC/Admit/Observation/Transfer Diagnosis at time of Disposition: Palpitations, Atypical chest pain - Discharge Dispostion Disposition: HOME Condition at time of disposition: Stable - Referrals Referrals: Eloy Jerome MD [Staff Physician] - - Patient Instructions Printed Discharge Instructions: DI for Atypical Chest Pain, DI for Palpitations - Post Discharge Activity - Attestations Physician Attestion: 11/07/18 22:51 The documentation was prepared by the scribe under my direct supervision. I have reviewed the documentation which correctly represents the findings, medical decision-making and critical action taken by me.
[2018-11-07 22:59] LABS: ALBUMIN 3.8 g/dl (3.4-5.0); BILIRUBIN,TOTAL 0.2 mg/dL (0.2-1); BLOOD UREA NITROGEN 12.2 mg/dL (7-18); CALCIUM 9.1 mg/dL (8.5-10.1); CREATININE 0.9 mg/dL (0.55-1.3); POTASSIUM 4.1 mmol/L (3.5-5.1); TOT PROT 7.3 g/dl (6.4-8.2)
[2018-11-08 00:56] VITALS: BP 122/70; PULSE 82
--- NOTE | 2018-11-08 16:59 | EKG ---
Test Reason : Blood Pressure : / mmHG Vent. Rate : 115 BPM Atrial Rate : 115 BPM P-R Int : 148 ms QRS Dur : 068 ms QT Int : 312 ms P-R-T Axes : 045 052 028 degrees QTc Int : 431 ms SINUS TACHYCARDIA OTHERWISE NORMAL ECG NO PREVIOUS ECGS AVAILABLE Confirmed by EDMUNDO FELIX MD ([id number]) on 11/08/2018 4:59:15 PM Referred By: Confirmed By:EDMUNDO FELIX MD
== END 2018-11-08 00:55 | disposition home or self-care (01) ==
LOC: JER 20:24
DX: R00.2 Palpitations (principal)
CPT/HCPCS: 36415; 71275-TC; 80053; 82550; 84439; 84443; 84484; 84703; 85025; 93005; 93010; 93971-TC; 99284-25

== ENCOUNTER 2020-04-26 08:44 | Emergency (ER) | payer OTHER ==
[2020-04-26 08:58] VITALS: BP 133/78; PULSE 92; TEMP 98.8; BMI 33.9
== END 2020-04-26 11:11 | disposition home or self-care (01) ==
LOC: JER 08:44
DX: U07.1 COVID-19 (principal); R07.9 Chest pain, unspecified
CPT/HCPCS: 71046-TC-FY; 93005; 93010; 99284-25